=== PATIENT | male | born 1955 | race Caucasian/White ===

== ENCOUNTER 2024-07-07 10:11 | Outpatient (REF) | payer OTHER, SELFPAY ==
--- OUTSIDE RECORDS SUMMARY | 2024-07-07 11:51 | XMS_ITS | Clinical Summary ---
Author Organization [employer] Address [address] [facility] [address] [place] [address] Care Team Providers Care Fishing Line Winding Machine Operator Name Role Phone Jennifer Russell MD Primary Care Provider [phone] Allergies No known active allergies Medications amLODIPine (Norvasc) 5 MG tablet Take 1 tablet by mouth Once per day. 5 Active metFORMIN (Glucophage) 500 MG tablet Take 500 mg by mouth with breakfast and with evening meal. 5 Active aspirin 81 MG EC tablet Take 1 tablet (81 mg) by mouth Once per day. 30 tablet 11 5 06/26/19 26 Active rosuvastatin (Crestor) 5 MG tablet Take 1 tablet (5 mg) by mouth Once per day. 30 tablet 11 5 06/26/19 26 Active FREESTYLE LITE test strip Use to test blood sugar 2 times daily 100 each 12 5 06/26/19 26 Active Lancets misc Use to test blood sugar 2 times daily 100 each 5 Active Blood Glucose Monitoring Suppl (FreeStyle [place] Lite) w/Device kitIndications: Type 2 diabetes mellitus without complication, without long-term current use of insulin ([facility]) Use to test blood sugar 2 times daily 1 kit 5 Active simethicone (Mylicon) 80 MG tablet Take 1 tablet (80 mg) by mouth 1 (one) time for 1 dose. 90 tablet 1 5 06/26/19 25 Active Problems Problem Noted Date Diagnosed Date Type 2 diabetes mellitus wit hout complication, without long-term current use of insulin 06/25/2024 Primary hypertension 06/25/2024 Encounters Date Type Department Care Team Description 06/30/2024 Telephone [facility] [address] [place] [address] Jennifer Russell MD Insurance 06/25/2024 11:00 AM EDT Telemedicine [facility] [address] [place] [address] Jennifer Russell MD Type 2 diabetes mellitus without complication, without long-term current use of insulin ([facility]) (Primary Dx); Primary hypertension; Screening-pulmonary TB 06/25/2024 Travel 06/05/2024 Travel from Last 3 Months Social History Tobacco Use Types Packs/Day Years Used Date Smoking Tobacco: Never Assessed Sex and Gender Information Value Date Recorded Sex Assigned at Male 06/05/2024 11:37 AM EDT Legal Sex Male 11:33 AM EDT Gender Identity Male 06/05/2024 11:37 AM EDT Sexual Orientation Straight 06/05/2024 11 :37 AM EDT Plan of Treatment Upcoming Encounters Date Type Department Care Team (Late st Contact Info) Description 07/29/2024 10:45 AM EDT Office Visit [facility] [address] [place] [address] Jennifer Russell MD [address] [place] [address] 08/24/2024 10:15 AM EDT Office Visit [facility] [address] [place] [address] Jennifer Russell MD [address] [place] [address] Health Maintenance Due Date Last Done Comments CT Colonography 1954 Colonoscopy 1954 Colorectal Cancer Screening 1954 Depression Screening 1954 Diabetes: Hemoglobin A1C 1954 FIT DNA/Cologuard 1954 FIT 1954 FOBT 1954 Lipid Panel 1954 SDOH Screening 1954 Sigmoidoscopy 1954 Diabetes: Foot Exam 1964 Eye Exam 1964 Alcohol/Substance Use Screening 1966 Tobacco Screening 1966 Hepatitis C Screening 1972 DTaP/Tdap/Td Vaccines (1 - Tdap) 1973 Diabetes: Urine Protein Screening 1973 Pneumococcal Vaccine: 50+ Ye ars (1 of 2 - PCV) 1973 Zoster Vaccines (1 of 2) 2004 COVID-19 Vaccine (1 - 2023-2 5 season) 2023 Influenza Vaccine (#1) 2023 RSV Patients and Pa tients Aged 60 years or older (1 - 1-dose 75+ series) 2029 HIB Vaccines Aged Out No longer eligi ble based on patient's age to complete this topic HPV Vaccines Aged Out No longer eligi ble based on patient's age to complete this topic Hepatitis A Vaccines Aged Out No long er eligible based on patient's age to complete this topic Hepatitis B Vaccines Aged Out No long er eligible based on patient's age to complete this topic IPV Vaccines Aged Out No longer eligi ble based on patient's age to complete this topic Meningococcal Vaccine Aged Out No humza dior eligible based on patient's age to complete this topic RSV under 20 months Aged Out No longe r eligible based on patient's age to complete this topic Rotavirus Vaccines Aged Out No longer eligible based on patient's age to complete this topic [place] [address] [place] [address] Care Teams Fishing Line Winding Machine Operator Relationship Specialty Start Date End Date Jennifer Russell MD [address] [place] [phone] PCP - General Family Medicine 06/25/24
[2024-07-07 15:14] LABS: Alanine Aminotransferase 34 U/L (0-40); Albumin Level 4.3 g/dL (3.5-5.0); Anion Gap 11 (12-20); Aspartate Amino Transferase 33 U/L (5-37); Bilirubin Direct 0.2 mg/dL (0.0-0.5); Bilirubin Total 0.4 mg/dL (0.0-1.0); Blood Urea Nitrogen 10 mg/dL (9-16); Calcium 9.4 mg/dL (8.4-10.2); Carbon Dioxide 27 mmol/L (22-29); Chloride 104 mmol/L (96-108); Cholesterol 137 mg/dL (<200); Estimated Glomerular Filt Rate > 60; Glucose Random 170 mg/dL (60-115); HDL Cholesterol 33 mg/dL (>40); LDL Cholesterol Calculated 66 mg/dL (<100); Potassium 4.7 mmol/L (3.3-5.1); Sodium 137 mmol/L (135-145); Total Protein 7.3 g/dL (6.5-8.0); Triglycerides 192 mg/dL (<150)
[2024-07-07 15:36] LABS: Estimated Average Glucose 177 mg/dL; Hemoglobin A1C 234.7953 umol/L; Hemoglobin A1c % 7.8 % (<6.0); Total Hemoglobin (HGBA1C) 3825.6145 umol/L
[2024-07-07 18:21] LABS: Alkaline Phosphatase 83 U/L (39-117)
== END 2024-07-07 10:12 | disposition home or self-care (01) ==
LOC: HO.CHCLDS 10:11
PROVIDERS: Visit Provider Student in an Organized Health Care Education/Training Program
DX: E11.9 Type 2 diabetes mellitus without complications (principal); I10 Essential (primary) hypertension
CPT/HCPCS: 36415; 80048; 80061; 80076; 83036

== ENCOUNTER 2024-07-29 11:07 | Outpatient (REF) | payer OTHER, SELFPAY ==
--- OUTSIDE RECORDS SUMMARY | 2024-07-29 12:13 | XMS_ITS | Clinical Summary ---
Author Organization [employer] Address [address] [facility] [address] [place] [address] Care Team Providers Care Lead Atg Developer Name Role Phone Jennifer Russell MD Primary Care Provider [phone] Allergies No known active allergies Medications FREESTYLE LITE test strip Use to test blood sugar 2 times daily 100 each 12 06/26/19 25 026 Active Lancets misc Use to test blood sugar 2 times daily 100 each 06/26/19 25 Active Blood Glucose Monitoring Suppl (FreeStyle [place] Lite) w/Device kitIndications :Type 2 diabetes mellitus without complication, without long-term current use of insulin ([facility]) Use to test blood sugar 2 times daily 1 kit 06/26/19 25 Active amLODIPine (Norvasc) 10 MG tablet Take 1 tablet (10 mg) by mouth Once per day. 30 tablet 07/30/19 026 Active metFORMIN (Glucophage) 1000 MG tablet Take 1 tablet (1,000 mg) by mouth with breakfast and with evening meal. 60 tablet 07/30/19 25 026 Active rosuvastatin (Crestor) 5 MG tablet Take 1 tablet (5 mg) by mouth Once per day. 90 tablet 07/30/19 25 026 Active aspirin 81 MG EC tablet Take 1 tablet (81 mg) by mouth Once per day. 90 tablet 07/30/19 25 026 Active amLODIPine (Norvasc) 5 MG tablet Take 1 tablet by mouth Once per day. 06/10/19 25 025 Discontinued(Re order (will not trigger notification to Pharmacy)) metFORMIN (Glucophage) 500 MG tablet Take 500 mg by mouth with breakfast and with evening meal. 06/10/19 025 Discontinued(Re order (will not trigger notification to Pharmacy)) aspirin 81 MG EC tablet Take 1 tablet (81 mg) by mouth Once per day. 30 tablet 06/26/19 025 Discontinued(Re order (will not trigger notification to Pharmacy)) rosuvastatin (Crestor) 5 MG tablet Take 1 tablet (5 mg) by mouth Once per day. 30 tablet 06/26/19 025 Discontinued(Re order (will not trigger notification to Pharmacy)) Active Problems Problem Noted Date Diagnosed Date Type 2 diabetes mellitus wit hout complication, without long-term current use of insulin 06/25/2024 Primary hypertension 06/25/2024 Encounters Date Type Department Care Team Description 07/29/2024 10:45 AM EDT Office Visit [facility] [address] [place] [address] Jennifer Russell MD Type 2 diabetes mellitus without complication, without long-term current use of insulin (CMS/HCC) (Primary Dx); Primary hypertension; Dietary counseling; Exercise counseling; Screening-pulmonary TB; Encounter for immunization; Encounter for annual wellness visit 07/29/2024 Travel 07/23/2024 Telephone [facility] [address] [place] [address] Jennifer Russell MD 06/30/2024 Telephone [facility] [address] [place] [address] Jennifer Russell MD Insurance 06/25/2024 11:00 AM EDT Telemedicine [facility] [address] [place] [address] Jennifer Russell MD Type 2 diabetes mellitus without complication, without long-term current use of insulin (CMS/HCC) (Primary Dx); Primary hypertension; Screening-pulmonary TB 06/25/2024 Travel 06/05/2024 Travel from Last 3 Months Immunizations Immunization Administration Dates Next Due Pneumococcal Conjugate PCV 20 07/29/2024 Tdap 07/29/2024 Social History Tobacco Use Types Packs/Day Years Used Date Smoking Tobacco: Never Assessed Sex and Gender Information Value Date Recorded Sex Assigned at Male 06/05/2024 11:37 AM EDT Legal Sex Male 11:33 AM EDT Gender Identity Male 06/05/2024 11:37 AM EDT Sexual Orientation Straight 06/05/2024 11 :37 AM EDT Last Filed Vital Signs Vital Sign Reading Time Taken Comments Blood Pressure 148/83 07/29/2024 10:41 AM EDT Pulse 72 07/29/2024 10:41 AM EDT Temperature 36.7 ??C (98 ??F) 07/29/2024 10:41 AM EDT Respiratory Rate 20 07/29/2024 10:41 AM EDT Oxygen Saturation - - Inhaled Oxygen Concentration - - Weight 78 kg (172 lb) 07/29/2024 10:41 AM EDT Height 167 cm (5' 5.75 ) 07/29/2024 10:41 AM EDT Body Mass Index 27.97 07/29/2024 10:41 AM EDT Plan of Treatment Upcoming Encounters Date Type Department Care Team ([facility] st Contact Info) Description 10/28/2024 10:45 AM EDT Telemedicine [facility] [address] [place] [address] Jennifer Russell MD [address] [place] [address] Health Maintenance Due Date Last Done Comments CT Colonography 1954 Colonoscopy 1954 Colorectal Cancer Screening 1954 Depression Screening 1954 FIT DNA/Cologuard 1954 FIT 1954 FOBT 1954 SDOH Screening 1954 Sigmoidoscopy 1954 Diabetes: Foot Exam 1964 Eye Exam 1964 Alcohol/Substance Use Screening 1966 Tobacco Screening 1966 Hepatitis C Screening 1972 Diabetes: Urine Protein Screening 1973 Zoster Vaccines (1 of 2) 2004 COVID-19 Vaccine (2023-2 5 season) 2023 Influenza Vaccine (#1) 2023 Diabetes: Hemoglobin A1C 10/07/2024 07/07/2024 Lipid Panel 07/07/2025 07/07/2024 RSV Patients and Pa tients Aged 60 years or older (1 - 1-dose 75+ series) 2029 DTaP/Tdap/Td Vaccines (2 - T d or Tdap) 07/29/2034 07/29/2024 Pneumococcal Vaccine: 50+ Years Completed HIB Vaccines Aged Out No longer eligi [...] patient's age to complete this topic Meningococcal B Vaccine Aged Out No l onger eligible based on patient's age to complete this topic Meningococcal Vaccine Aged Out No humza dior eligible based on patient's age to complete this topic RSV under 20 months Aged Out No longe r eligible based on patient's age to complete this topic Rotavirus Vaccines Aged Out No longer eligible based on patient's age to complete this topic Procedures Procedure Name Priority Date/Time Associated Diagnosis Comments POCT GLUCOSE Routine 07/29/2024 10:43 AM EDT Type 2 diabetes mellitus without complication, without long-term current use of insulin ([facility]) HEPATIC FUNCTION PANEL Routine 07/07/2024 10:20 AM EDT Type 2 diabetes mellitus without complication, without long-term current use of insulin ([facility]) Primary hypertension LIPID PANEL, STANDARD Routine 07/07/2024 10:20 AM EDT Type 2 diabetes mellitus without complication, without long-term current use of insulin ([facility]) Primary hypertension BASIC METABOLIC PANEL Routine 07/07/2024 10:20 AM EDT Type 2 diabetes mellitus without complication, without long-term current use of insulin ([facility]) Primary hypertension HEMOGLOBIN A1C Routine 07/07/2024 10:20 AM EDT Type 2 diabetes mellitus without complication, without long-term current use of insulin ([facility]) Primary hypertension from Last 3 Months Results * (ABNORMAL) POCT Glucose (07/29/2024 10:43 AM EDT) Glucose Blood, POC 371(A) 60 - 200 mg/dL QC Media Lot # [id number] Lot# Expiration Date Blood Capillary blood specimen / Unknown 07/29/2024 10:43 AM EDT Jennifer Russell MD POINT OF CARE TEST ENTER/EDIT OR DERABLES Final Result * (ABNORMAL) Hemoglobin A1c (07/07/2024 10:20 AM EDT) Hemoglobin A1c 7.8(H) <6.0 % [facility] Comment:Hemoglobin A1C Refer ence Range Adults: 4.8 - 6.0 % Non diabetic: < 6.0 % Goal: < 7.0 %Additional Action Suggested: > 8.0 %Note: Hemoglobin A1c results are invalid for patients with abnormal amounts of HbF. Blood transfusions may impact the HbA1c concentration in the patient sample. Estimated Average Glucose 177 mg/dL [facility] Comment:eAG = Estimated ave rage glucose which is %A1C expressed asaverage glucose, using the formula of the [id number] Glucose study (ADAG), Diabetes Care, Vol.31,#8,Oct. 2007 Blood Venous blood specimen / Unknown 07/07/2024 10:20 AM EDT 07/07/2024 2:21 PM EDT Jennifer Russell MD LAB BLOOD ORDERABLES Final Resul t [facility] [address] [place] [phone] * Hepatic Function Panel (07/07/2024 10:20 AM EDT) Bilirubin, Total 0.4 0.0 - 1.0 mg/dL [facility] Bilirubin, Direct 0.2 0.0 - 0.5 mg/dL [facility] Aspartate Amino Transferase 33 5 - 37 U/L [facility] Alanine Aminotransferase 34 0 - 40 U/L [facility] Total Protein 7.3 6.5 - 8.0 g/dL [facility] Albumin Level 4.3 3.5 - 5.0 g/dL [facility] Alkaline Phosphatase 83 39 - 117 U/L [facility] Blood Venous blood specimen / Unknown 07/07/2024 10:20 AM EDT 07/07/2024 2:28 PM EDT us Jennifer Russell MD LAB BLOOD ORDERABLES Final Resul t [facility] [address] [place] [phone] * (ABNORMAL) Lipid Panel, Standard (07/07/2024 10:20 AM EDT) Triglycerides 192(H) <150 mg/dL [facility] Comment:Desirable Triglyceri de: less than 150 mg/dLBorderline High Triglyceride 150-199 mg/dLHigh Triglyceride: 200-499 mg/dLVery High Triglyceride: greater than or equal to 5OO mg/dL Cholesterol 137 <200 mg/dL [facility] Comment:Desirable Cholestero l: less than 200 mg/dLBorderline High Cholesterol: 200-239 mg/dLHigh Cholesterol: greater than 239 mg/dL LDL Cholesterol Calculated 66 <100 mg/dL [facility] Comment:Desirable LDL: less than 100 mg/dLNear Optimal/Above Optimal LDL: 110- 129 mg/dLBorderline High LDL: 130-159 mg/dLHigh LDL: 160-189 mg/dLVery High LDL: greater than or equal to 190 mg/dL HDL Cholesterol 33(L) >40 mg/dL [facility] Comment:Desirable HDL: great er than 40 mg/dL Note: This HDL assay may give artificially low results in patients with liver disease. Blood Venous blood specimen / Unknown 07/07/2024 10:20 AM EDT 07/07/2024 2:28 PM EDT us Jennifer Russell MD LAB BLOOD ORDERABLES Final Resul t Performing Organization Address [facility] Co de Phone Number [facility] [address] [place] [address] [phone] * (ABNORMAL) Basic Metabolic Panel (07/07/2024 10:20 AM EDT) Sodium 137 135 - 145 mmol/L [facility] Potassium 4.7 3.3 - 5.1 mmol/L [facility] Chloride 104 96 - 108 mmol/L [facility] Carbon Dioxide 27 22 - 29 mmol/L [facility] Anion Gap 11(L) 12 - 20 [facility] Urea Nitrogen (BUN) 10 9 - 16 mg/dL [facility] Creatinine, Serum 1.04 0.5 - 1.4 mg/dL [facility] Estimated Glomerular Filt Rate >60 [facility] Comment:Chronic Kidney Disea se: Estimated GFR < 60 mL/min/[id number] Kidney Disease: Estimated GFR < 15 mL/min/1.73m2 Glucose 170(H) 60 - 115 mg/dL [facility] Calcium 9.4 8.4 - 10.2 mg/dL [facility] Blood Venous blood specimen / Unknown 07/07/2024 10:20 AM EDT 07/07/2024 2:28 PM EDT Jennifer Russell MD LAB BLOOD ORDERABLES Final Resul t Performing Organization Address City/[facility]/ZIP Co de Phone Number [facility] [address] [place] [address] [phone] from Last 3 Months Insurance [employer] Care Teams Lead Atg Developer Relationship Specialty Start Date End Date Jennifer Russell MD [address] [place] [phone] PCP - General Family Medicine 06/25/24
[2024-07-29 14:55] LABS: Creatinine Urine 112.03 mg/dL; Microalbum/Creatinine Ratio Ur 14.2 ug/mg cr (<30)
[2024-08-01 15:28] LABS: TS Negative Control Passed; TS Panel A 1; TS Panel B 0; TS Positive Control Passed; TSpotTB Negative (Negative)
== END 2024-07-29 11:08 | disposition home or self-care (01) ==
LOC: HO.CHCLDS 11:07
PROVIDERS: PCP Student in an Organized Health Care Education/Training Program; Visit Provider Student in an Organized Health Care Education/Training Program
DX: Z11.1 Encounter for screening for respiratory tuberculosis (principal); E11.9 Type 2 diabetes mellitus without complications
CPT/HCPCS: 36415; 82043; 82570; 86481